=== PATIENT | female | born 1965 | race Hispanic/Latino ===

== ENCOUNTER 2016-10-23 19:43 | Emergency (ER) | payer OTHER ==
[~2016-10-23] VITALS: Ht 152.4 cm; Wt 77.3 kg
[~2016-10-23 19:43] MED LIST: HYDR1CAP2 PO; [UNRECOGNIZED DRUG - OTHER]
[2016-10-23 19:59] VITALS: BP 132/90; PULSE 83; RESP 16; O2SAT 98
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
[2016-10-23] MEDS ORDERED: IBUP-1827 PO (22:03)
[2016-10-23] MEDS ORDERED: METH-313 PO (22:03)
[2016-10-23 22:43] VITALS: BP 136/86; PULSE 84; RESP 16
== END 2016-10-23 22:44 | disposition home or self-care (01) ==
LOC: SED 19:43
DX: S16.1XXA Strain of muscle, fascia and tendon at neck level, initial encounter (principal); V49.50XA Passenger injured in collision with unspecified motor vehicles in traffic accident, initial encounter; Y93.89 Activity, other specified; Y99.8 Other external cause status; Y92.410 Unspecified street and highway as the place of occurrence of the external cause; E11.9 Type 2 diabetes mellitus without complications; Z88.8 Allergy status to other drugs, medicaments and biological substances